=== PATIENT | male | born 1965 | race Caucasian/White ===

== ENCOUNTER 2020-01-02 08:33 | Outpatient (CLI) | payer OTHER, SELFPAY ==
--- NOTE | 2020-01-02 09:12 | EST_ITS ---
Patient Info Name: El Farris Age: 54 years : 1965 Gender: Male Ht: 70 in Wt: 190 lbs BSA: 2.08 m2 Exam Date: 01/02/2020 9:30 AM Exam Location: [facility] Stress Patient Status: Outpatient Admit Date: 01/02/2020 Staff Ordering Physician: Chapin Barbosa DO Attending Provider: Chapin Barbosa DO Exercise Technologist: Sally Bang RDCS Exercise Physician: Chapin Barbosa DO Exam Type: CA stress test treadmill Study Info Indications R07.9 - Chest pain, unspecified A treadmill exercise stress test was performed. Summary 1. 1. Negative Live exercise stress test for ischemic ST changes by ECG criteria. 2. 2. Good functional capacity, achieving 10 METs of workload. 3. 3. Appropriate HR response to exercise. 4. 4. Appropriate HR recovery at 1 minute post exercise. 5. 5. No imaging with stress testing. 6. 6. Patient informed of the above results. Protocol: Live Stress ECG Details Stage: REST Duration (min): 1 min : 51 sec Speed (mph): 0.0 Grade (%): 0 HR (bpm): 72 SBP (mmHg): 139 DBP (mmHg): 96 METS: --- Stage: REST Duration (min): 3 min : 54 sec Speed (mph): 0.0 Grade (%): 0 HR (bpm): 88 SBP (mmHg): 139 DBP (mmHg): 96 METS: --- Stage: STAGE 1 Duration (min): 1 min : 0 sec Speed (mph): 1.7 Grade (%): 10 HR (bpm): 101 SBP (mmHg): 139 DBP (mmHg): 96 METS: --- Stage: STAGE 1 Duration (min): 2 min : 0 sec Speed (mph): 1.7 Grade (%): 10 HR (bpm): 104 SBP (mmHg): 139 DBP (mmHg): 96 METS: --- Stage: STAGE 1 Duration (min): 3 min : 0 sec Speed (mph): 1.7 Grade (%): 10 HR (bpm): 110 SBP (mmHg): 155 DBP (mmHg): 85 METS: --- Stage: STAGE 2 Duration (min): 1 min : 0 sec Speed (mph): 2.5 Grade (%): 12 HR (bpm): 120 SBP (mmHg): 155 DBP (mmHg): 85 METS: --- Stage: STAGE 2 Duration (min): 2 min : 0 sec Speed (mph): 2.5 Grade (%): 12 HR (bpm): 131 SBP (mmHg): 174 DBP (mmHg): 106 METS: --- Stage: STAGE 2 Duration (min): 3 min : 0 sec Speed (mph): 2.5 Grade (%): 12 HR (bpm): 136 SBP (mmHg): 174 DBP (mmHg): 106 METS: --- Stage: STAGE 3 Duration (min): 1 min : 0 sec Speed (mph): 3.4 Grade (%): 14 HR (bpm): 145 SBP (mmHg): 208 DBP (mmHg): 91 METS: --- Stage: STAGE 3 Duration (min): 2 min : 0 sec Speed (mph): 3.4 Grade (%): 14 HR (bpm): 159 SBP (mmHg): 208 DBP (mmHg): 91 METS: --- Stage: STAGE 3 Duration (min): 2 min : 30 sec Speed (mph): 3.4 Grade (%): 14 HR (bpm): 163 SBP (mmHg): 208 DBP (mmHg): 91 METS: --- Stage: RECOVERY Duration (min): 0 min : 29 sec Speed (mph): 0.0 Grade (%): 0 HR (bpm): 154 SBP (mmHg): 208 DBP (mmHg): 91 METS: --- Stage: RECOVERY Duration (min): 1 min : 29 sec Speed (m
== END 2020-01-02 08:34 | disposition home or self-care (01) ==
LOC: ANHCARD 08:35
PROVIDERS: PCP Internal Medicine; Visit Provider Internal Medicine Cardiovascular Disease
DX: R07.9 Chest pain, unspecified (principal)
CPT/HCPCS: 93017

== ENCOUNTER 2023-11-13 13:47 | Outpatient (CLI) | payer BC, SELFPAY ==
--- NOTE | ~2023-11-13 | MR_ITS ---
EXAMINATION: MR shoulder LT wo con DATE: 11/13/2023 14:19 INDICATION: Pain L shoulder . TECHNIQUE: Magnetic resonance imaging (MRI) of the left shoulder was performed without intravenous co ntrast. Sequences included axial PD-weighted FS FSE, coronal oblique PD-weighted FS FSE and T2-weight ed FS FSE, and sagittal oblique T2-weighted FS FSE and T1-weighted FSE. COMPARISON: None. FINDINGS: Coracoacromial arch: Mild anterolateral downsloping of the type I acromion. Inferior osteophytosis of the AC joint. Acromi al tip enthesopathy. No subcoracoid or subacromial narrowing. Rotator cuff: 6 mm near full-thickness, articular sided, partial tear of the supraspinatus at its insertion. The in fraspinatus, teres minor, and subscapularis are intact Biceps tendon and glenoid labrum: The long head of biceps tendon is intact. Superoposterior labral tear. Fluid: No abnormal fluid collection. Bones/cartilage: No suspicious focal or diffuse marrow signal. Moderate diffuse cartilage thinning on the glenoid. IMPRESSION: 6 mm, near full-thickness articular sided supraspinatus tear. Superoposterior glenoid labral tear. Moderate polyarticular osteoarthritis. Reviewed, dictated and finalized at location [facility].
== END 2023-11-13 13:48 ==
DX: M75.112 Incomplete rotator cuff tear or rupture of left shoulder, not specified as traumatic (principal); M19.012 Primary osteoarthritis, left shoulder; S43.432A Superior glenoid labrum lesion of left shoulder, initial encounter; X58.XXXA Exposure to other specified factors, initial encounter
CPT/HCPCS: 73221

== ENCOUNTER 2024-02-16 08:37 | Outpatient (CLI) | payer BC, SELFPAY ==
--- NOTE | 2024-02-16 08:39 | EST_ITS ---
Patient Info Name: El Farris Age: 59 years : 1965 Gender: Male Ht: 70 in Wt: 175 lbs BSA: 1.99 m2 HR: 83 bpm BP: 135 / 84 mmHg Exam Date: 02/16/2024 8:44 AM Exam Location: [facility] Patient Status: Outpatient Admit Date: 02/16/2024 Staff Ordering Physician: Chapin Barbosa DO Attending Provider: Chapin Barbosa DO Exercise Technologist: Rosalie Meehan RDCS Exercise Physician: Chapin Barbosa DO Exam Type: CA stress test treadmill Study Info Indications R06.09 - Other forms of dyspnea A treadmill exercise stress test was performed. Summary 1. 1. Negative Live exercise stress test for ischemic ST changes by ECG criteria. 2. 2. Good functional capacity, achieving 10 METs of workload. 3. 3. Appropriate HR response to exercise. 4. 4. Appropriate HR recovery at 1 minute post exercise. 5. 5. No imaging with stress testing. 6. 6. Patient informed of the above results. Protocol: Live Stress ECG Details Stage: REST Duration (min): 5 min : 36 sec Speed (mph): 0.0 Grade (%): 0 HR (bpm): 81 SBP (mmHg): 135 DBP (mmHg): 84 METS: --- Stage: REST Duration (min): 11 min : 0 sec Speed (mph): 0.0 Grade (%): 0 HR (bpm): 80 SBP (mmHg): 135 DBP (mmHg): 84 METS: --- Stage: STAGE 1 Duration (min): 1 min : 0 sec Speed (mph): 1.7 Grade (%): 10 HR (bpm): 100 SBP (mmHg): 135 DBP (mmHg): 84 METS: --- Stage: STAGE 1 Duration (min): 2 min : 0 sec Speed (mph): 1.7 Grade (%): 10 HR (bpm): 104 SBP (mmHg): 135 DBP (mmHg): 84 METS: --- Stage: STAGE 1 Duration (min): 3 min : 0 sec Speed (mph): 1.7 Grade (%): 10 HR (bpm): 108 SBP (mmHg): 173 DBP (mmHg): 87 METS: --- Stage: STAGE 2 Duration (min): 1 min : 0 sec Speed (mph): 2.5 Grade (%): 12 HR (bpm): 114 SBP (mmHg): 173 DBP (mmHg): 87 METS: --- Stage: STAGE 2 Duration (min): 2 min : 0 sec Speed (mph): 2.5 Grade (%): 12 HR (bpm): 118 SBP (mmHg): 179 DBP (mmHg): 84 METS: --- Stage: STAGE 2 Duration (min): 3 min : 0 sec Speed (mph): 2.5 Grade (%): 12 HR (bpm): 119 SBP (mmHg): 179 DBP (mmHg): 84 METS: --- Stage: STAGE 3 Duration (min): 1 min : 0 sec Speed (mph): 3.4 Grade (%): 14 HR (bpm): 132 SBP (mmHg): 193 DBP (mmHg): 86 METS: --- Stage: STAGE 3 Duration (min): 2 min : 0 sec Speed (mph): 3.4 Grade (%): 14 HR (bpm): 145 SBP (mmHg): 193 DBP (mmHg): 86 METS: --- Stage: STAGE 3 Duration (min): 2 min : 52 sec Speed (mph): 3.4 Grade (%): 14 HR (bpm): 148 SBP (mmHg): 205 DBP (mmHg): 90 METS: --- Stage: RECOVERY Duration (min): 0 min : 7 sec Speed (mph): 1.5 Grade (%): 0 HR (bpm): 150 SBP (mmHg): 205 DBP (mmHg): 90 METS: --- Stage: RECOVERY Duration (min): 1 min : 7 sec Speed (mph): 0.0 Grade (%): 0 HR (bpm): 123 SBP (mmHg): 205 DBP (mmHg): 90 METS: --- Stage: RECOVERY Duration (min): 2 min : 7 sec Speed (mph): 0.0 Grade (%): 0 HR (bpm): 103 SBP (mmHg): 205 DBP (mmHg): 90 METS: --- Stage: RECOVERY Duration (min): 3 min : 7 sec Speed (mph): 0.0 Grade (%): 0 HR (bpm): 104 SBP (mmHg): 189 DBP (mmHg): 94 METS: --- Stage: RECOVERY Duration (min): 3 min : 10 sec Speed (mph): 0.0 Grade (%): 0 HR (bpm): 104 SBP (mmHg): 189 DBP (mmHg): 94 METS: --- Rest HR: 80 bpm Peak HR: 150 bpm Rest Sys BP: 135 mmHg Peak Sys BP: 205 mmHg Max Pred HR: 160 bpm % Max Pred HR: 94 % Target HR: 136 bpm Max RPP: 30,750 bpm*mmHg Melchor Score: 6 Termination Reason: Reached target heart rate or workload Cardiac Symptoms: Shortness of breath Max ST Seg Deviation: 0.60 mm Total Time: 8 min : 52 sec Rest Barraza BP: 84 mmHg Peak Barraza BP: 90 mmHg Angina Score: None Total METS: 10.3 Resting ECG Sinus rhythm. Stress ECG No ST changes. Arrhythmias None. Report Signatures
== END 2024-02-16 08:38 | disposition home or self-care (01) ==
PROVIDERS: Visit Provider Internal Medicine Cardiovascular Disease
DX: R06.09 Other forms of dyspnea (principal)
CPT/HCPCS: 93017

== ENCOUNTER 2024-03-02 12:01 | Outpatient (CLI) | payer BC, SELFPAY ==
[2024-03-02 12:23] LABS: Basophils Absolute Auto 0.1 K/mm3 (0.0-0.1); Basophils Percent Auto 0.9 % (0.2-1.2); Eosinophils Absolute Auto 0.1 K/mm3 (0-0.3); Eosinophils Percent Auto 1.2 % (0-4.4); Hematocrit 50.2 % (42.0-52.0); Hemoglobin 17.1 g/dL (14.0-18.0); Immature Granulocyte Absolute 0.03 K/mm3 (0.00-0.031); Immature Granulocyte Percent A 0.5 % (0-0.5); Lymphocytes Absolute Auto 1.77 K/mm3 (0.9-3.2); Lymphocytes Percent Auto 27.3 % (18.3-44.2); Mean Corpuscular HGB Conc 34.1 g/dl (32-36); Mean Corpuscular Hemoglobin 30.5 pg (26-34); Mean Corpuscular Volume 89.6 fl (80-100); Mean Platelet Volume 9.2 fl (7.4-10.4); Monocytes Absolute Auto 0.6 K/mm3 (0.1-0.6); Monocytes Percent Auto 8.5 % (2.6-8.5); Neutrophils Percent Auto 61.6 % (45.5-73.1); Platelet Count Result 189 k/mm3 (150-375); Red Cell Distribution Width 12.6 % (11.5-14.5); White Blood Count 6.5 K/mm3 (4.5-10.0)
[2024-03-02 17:42] LABS: Alanine Aminotransferase 33 U/L (6-50); Albumin Level 4.9 g/dL (3.5-5.1); Alkaline Phosphatase 72 U/L (38-126); Anion Gap 10 mmol/L (4-12); Aspartate Amino Transferase 59 U/L (17-59); Bilirubin,Total 1.2 mg/dL (0.2-1.3); Blood Urea Nitrogen 19 mg/dL (9-20); Calcium 9.7 mg/dL (8.4-10.2); Carbon Dioxide 28 mmol/L (22-30); Chloride 99 mmol/L (98-107); Estimated Glomerular Filt Rate > 60; Glucose 221 mg/dL (65-110); Potassium 4.7 mmol/L (3.4-5.0); Sodium 137 mmol/L (137-145)
[2024-03-08 11:39] LABS: Erythropoietin (EPO) 8.6 mIU/mL (2.6-18.5)
== END 2024-03-02 12:02 | disposition home or self-care (01) ==
LOC: ANHLAB 12:03
PROVIDERS: Visit Provider Internal Medicine Hematology & Oncology
DX: D75.1 Secondary polycythemia (principal)
CPT/HCPCS: 36415; 80053; 82668; 85025

== ENCOUNTER 2024-03-11 12:02 | Outpatient (CLI) | payer BC, SELFPAY | END 2024-03-11 12:03 | disposition home or self-care (01) | PROVIDERS: Visit Provider Internal Medicine Hematology & Oncology | DX: D75.1 Secondary polycythemia (principal) | CPT/HCPCS: 36415; 81270 ==